=== PATIENT | male | born 1985 | race Caucasian/White ===

== ENCOUNTER 2018-10-15 05:08 | Emergency (ER) | payer BC ==
--- NOTE | 2018-10-15 07:51 | RAD ---
Exam:3 views left shoulder HISTORY: Injury. Pain. COMPARISON: None FINDINGS: Glenohumeral joint space is preserved. No fracture or dislocation. Visualized left ribs are unremarkable. IMPRESSION: No fracture or dislocation
--- NOTE | 2018-10-15 07:52 | RAD ---
EXAM: Chest PA and lateral: HISTORY: Trauma. Pain. Injury. COMPARISON: None FINDINGS: Heart: Normal Aorta: Unremarkable Pulmonary vessels: Normal Costophrenic angles: Costophrenic angles are clear. Lungs: No consolidation or masses. Pneumothorax: No pneumothorax Osseous structures: No osseous abnormalities IMPRESSION: No acute cardiopulmonary process.
== END 2018-10-15 06:00 | disposition home or self-care (01) ==
LOC: ERS 05:08 → EDBD 05:08 → ERS 06:00
DX: S46.912A Strain of unspecified muscle, fascia and tendon at shoulder and upper arm level, left arm, initial encounter (principal); S16.1XXA Strain of muscle, fascia and tendon at neck level, initial encounter; V89.2XXA Person injured in unspecified motor-vehicle accident, traffic, initial encounter
CPT/HCPCS: 71046

== ENCOUNTER 2018-12-16 08:21 | Outpatient (CLI) | payer BC ==
--- NOTE | 2018-12-16 08:48 | ULT ---
Gallbladder ultrasound: Multiple grayscale images of right upper quadrant obtained according to protocol. INDICATION: Pain FINDINGS: Liver: Normal Gallbladder: Normal Gallbladder wall: Normal. Sagastume's Sign: Negative Common bile duct is normal. Ascites: None IMPRESSION: Normal gallbladder.
== END 2018-12-16 08:22 | disposition home or self-care (01) ==
LOC: BICULT 08:21
PROVIDERS: ATTEND Family Medicine
DX: R10.9 Unspecified abdominal pain (principal)
CPT/HCPCS: 76705